=== PATIENT | female | born 1940 | race Caucasian/White ===

== ENCOUNTER → 2022-11-12 10:42 | Outpatient (BNVA) | payer MEDICARE, SELFPAY | PROVIDERS: PCP Pediatrics; Visit Provider Nurse Practitioner Family | DX: G20 Parkinson's disease (principal); R26.9 Unspecified abnormalities of gait and mobility | CPT/HCPCS: 99212 ==

== ENCOUNTER 2023-03-16 10:43 | Outpatient (AMB) | payer MEDICARE, SELFPAY ==
--- NOTE | 2023-03-16 11:13 | MHC.OFFVIS ---
Intake Vital Signs 03/16/23 11:17 Weight 114 lb 4 oz BP 138/68 Blood Pressure Location Lt brachial Position Sitting Pulse 87 Pulse Source Pulse Oximeter Pulse Oximetry (%) 97 Oxygen Delivery Method Room Air Intake Visit Reasons: 4MONTH FOLLOW UP Intake Note: F/U Parkinsons, states is doing exercise Pumper Head Required: No Allergies No Known Allergies Allergy (Verified 03/16/23 11:14) Medication List - Last Reconciled 03/16/23 by CARLIE Al carbidopa-levodopa 25-100 mg ER 1 tab PO QID 30 days ibuprofen 400 mg PO Q8H lisinopril 20 mg PO BID tolterodine ER 4 mg PO DAILY HPI HPI Comments History of Present Illness Details 82-yr-old female presents for f/u visit. Pt denies any significant interval medical history changes. Pt's current PD medication regimen: Pt decreased CD-LD ER 25-100mg- from 1 tab qid to 1 tab tid. Pt's primary concerns are: She wonders if there are local PD support groups ADL's: Ind but slow Swallowing: No issues w/ food. Has to be careful with fluids. Cough: No issues Drooling: Can have drooling, bothersome when walking with more exertion, say up a hill and needing to mouth breathe Orthostatic lightheadedness: Some Constipation: No issues Freezing: Denies Stiffness: Some Tremor: Mild LLE tremor at times Falls/Gait: Has fallen- tripped over a rock on her morning walk. Hallucinations: None Memory: Good. Rarely may forget a name Sleep: Sleeping well. Exercise: Taking the morning walk. Doing the PD exercise class. She wonders about using a treadmill or a stationary bike (has just found one but seat is too high). [facility] Family History (Updated 11/12/22 @ 10:53 by Abi Hernandez CMA) Mother COPD (chronic obstructive pulmonary disease) Father Emphysema of lung Social History (Updated 11/12/22 @ 10:52 by Abi Hernandez CMA) Alcohol intake: never Patient Tobacco Use Status: Never used Tobacco Review of Systems Const All systems reviewed & are unremarkable except as noted in HPI and below Physical Exam Vital Signs: Last Vital Signs Pulse 87 03/16/23 11:17 BP 138/68 03/16/23 11:17 Pulse Ox 97 03/16/23 11:17 Oxygen Delivery Method Room Air 03/16/23 11:17 Const General: cooperative and no acute distress Resp Effort & Inspection: normal respiratory effort and able to speak in complete sentences Neuro Other: Expression: Decreased expression Voice: Soft voice Tremor: None Tone: BUE Dyskinesia: None FFM: Mild bradykinesia Foot taps: Mild bradykinesia Gait: Stands ok, decreased arm swing, short steps w/ low floor clearance, steady gait Psych: Pleasant effect General: patient oriented x3 Assessment & Plan Assessment & Plan (1) Parkinson's disease: Code(s): G20 - Parkinson's disease (2) Gait difficulty: Code(s): R26.9 - Unspecified abnormalities of gait and mobility Plan May continue CD-LD Er [id number] 1 tab tid-qid. Try using a saline nasal spray prior to her walks to improve ability to breathe in through her nose and minimize drooling w/ walking. Info given on local PD support and exercise groups- pt may also benefit from checking the APDA website. Continue daily walks. Pt may try the stationary bike once seat is adjusted. She may use a treadmill, but w/ caution- ie holding onto railing and using safety/pull attachment. Coding Level of Care Code Est Pt Level 4 (96247) Diagnoses Parkinson's disease G20 Gait difficulty R26.9
[2023-03-16 11:17] VITALS: BP 138/68; PULSE 87; O2SAT 97
== END 2023-03-16 12:19 | disposition home or self-care (01) ==
PROVIDERS: Visit Provider Nurse Practitioner Family
DX: G20 Parkinson's disease (principal); R26.9 Unspecified abnormalities of gait and mobility
CPT/HCPCS: 99214

== ENCOUNTER → 2023-03-16 10:43 | Outpatient (BNVA) | payer MEDICARE, SELFPAY | PROVIDERS: Visit Provider Nurse Practitioner Family | DX: G20 Parkinson's disease (principal); R26.9 Unspecified abnormalities of gait and mobility | CPT/HCPCS: 99212 ==

== ENCOUNTER 2023-06-16 09:55 | Outpatient (AMB) | payer MEDICARE, SELFPAY ==
[2023-06-16 10:18] VITALS: BP 110/82; PULSE 95; O2SAT 98; BMI 19.9
--- NOTE | 2023-06-16 10:18 | MHC.OFFVIS ---
Intake Vital Signs 06/16/23 10:18 Height 5 ft 3 in Weight 112 lb 6 oz BMI 19.9 BP 110/82 Blood Pressure Location Rt brachial Position Sitting Pulse 95 Pulse Source Pulse Oximeter Pulse Oximetry (%) 98 Oxygen Delivery Method Room Air Intake Visit Reasons: f/u new symptoms / Confirmed Intake Note: Patient presents for new symptoms. I've got issues to address with her,I dont know where I'm at in the parkinsons scale. . Allergies No Known Allergies Allergy (Verified 06/16/23 10:20) Medication List - Last Reconciled 06/16/23 by CARLIE Al carbidopa-levodopa 25-100 mg ER 1 tab orally 5 x's per day; 30 days ibuprofen 400 mg PO Q8H lisinopril 20 mg PO BID tolterodine ER 4 mg PO DAILY HPI HPI Comments History of Present Illness Details 82-yr-old female presents for f/u visit. Pt denies any significant interval medical history changes. Pt reports that her Parkinson's dz is progressing. She is now noticing her CD-LD wearing off. Pt's current PD medication regimen: CD-LD ER 25-100mg 1 tab qid. Do medication effects last between doses: Wearing off in am. Last dose of pily t 7 pm, goes to bed at 11pm, 1st am dose at 7am- takes a walk but CD-LD takes an hr to kick in. ADL's: Ind but slow Swallowing: No issues w/ food. Has to be careful with fluids or crumbly foods. Drooling: Having more drooling, it is bothersome- trying to remind herself to keep swallowing. Orthostatic lightheadedness: Feeling : She is having bothersome urinary urgency, frequency, and nocturia- has to plan her day regarding bathroom access. She read that Botox can be helpful for OAB in PD- she would like to try Botox. Constipation: No issues Freezing: Denies Stiffness: Some Tremor: Tremor is worse in the am- when doing tasks, for instance cannot brush her teeth in the am. Can have an internal tremor. Falls/Gait: No falls Hallucinations: None Memory: Good. Rarely may forget a name Sleep: Sleeping well overall. She is trying to limit fluids in the evening. Exercise: Taking the morning walk. Not doing the PD exercise class in-person- the drive was to far. She is doing an online Power for Parkinson's. She is doing a stationary bike for about 15 min a day. 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 PFSH Family History Mother COPD (chronic obstructive pulmonary disease) Father Emphysema of lung Social History Alcohol intake: never Patient Tobacco Use Status: Never used Tobacco Review of Systems Const All systems reviewed & are unremarkable except as noted in HPI and below Physical Exam Vital Signs: Last Vital Signs Pulse 95 06/16/23 10:18 BP 110/82 06/16/23 10:18 Pulse Ox 98 06/16/23 10:18 Oxygen Delivery Method Room Air 06/16/23 10:18 BMI result Body Mass Index 19.9 Const General: cooperative and no acute distress Resp Effort & Inspection: normal respiratory effort and able to speak in complete sentences Neuro Other: General: patient oriented x3 Expression: Decreased expression Voice: Soft voice Tremor: BUE postural tremor- mild Tone: BUE mild Dyskinesia: None FFM: Mild bradykinesia Foot taps: Mild bradykinesia Gait: Stands slower today- uses arms to push-up, decreased arm swing, bent knees, shorter steps w/ lower floor clearance, steady gait Psych: Pleasant effect Assessment & Plan Assessment & Plan (1) Parkinson's disease with dyskinesia: Code(s): G20.B1 - Parkinson's disease with dyskinesia, without mention of fluctuations (2) Urinary frequency: Code(s): R35.0 - Frequency of micturition (3) Urinary urgency: Code(s): R39.15 - Urgency of urination (4) Gait difficulty: Code(s): R26.9 - Unspecified abnormalities of gait and mobility Plan Increase CD-LD Er 25-100mg from 1 tab qid to 1 tab % x's per day (7am, 11am, 3pm, 7pm, 11pm). If still off in the am, consider increasing 7am dose to 2 tabs or adding CD-LD IR 25-100mg 1/2-1 tab w/ 7am ER dose. Will refer pt for urology consult- explained that urology will need to evaluate her in order to consider her for Botox. Continue daily walks, stationary bike, and online PD exercise classes. She may use a treadmill, but w/ caution- ie holding onto railing and using safety/pull attachment. f/u in 3 months or sooner prn. Orders: Referrals Urology Referral G20.B1 - Parkinson's disease with dyskinesia, without mention of fluctuations, R35.0 - Frequency of micturition, R39.15 - Urgency of urination Medications: Changed From carbidopa-levodopa 25-100 mg ER 1 tab PO QID 30 days 120 tabs 6RF To carbidopa-levodopa 25-100 mg ER 1 tab orally 5 x's per day; 30 days 150 tabs 6RF Coding Level of Care Code Est Pt Level 4 (51435) Diagnoses Parkinson's disease with dyskinesia G20.B1 Urinary frequency R35.0 Urinary urgency R39.15 Gait difficulty R26.9
== END 2023-06-16 11:12 | disposition home or self-care (01) ==
PROVIDERS: PCP Pediatrics; Visit Provider Nurse Practitioner Family
DX: G20.B1 Parkinson's disease with dyskinesia, without mention of fluctuations (principal); R35.0 Frequency of micturition; R39.15 Urgency of urination; R26.9 Unspecified abnormalities of gait and mobility
CPT/HCPCS: 99214

== ENCOUNTER → 2023-06-16 09:55 | Outpatient (BNVA) | payer MEDICARE, SELFPAY | PROVIDERS: PCP Pediatrics; Visit Provider Nurse Practitioner Family | DX: G20.B1 Parkinson's disease with dyskinesia, without mention of fluctuations (principal); R35.0 Frequency of micturition; R39.15 Urgency of urination; R26.9 Unspecified abnormalities of gait and mobility | CPT/HCPCS: 99212 ==

== ENCOUNTER 2023-07-06 12:42 | Outpatient (AMB) | payer MEDICARE, SELFPAY ==
--- NOTE | 2023-07-06 13:05 | MHC.OFFVIS ---
Intake Intake Visit Reasons: OAB Intake Note: New Patient presents for initial visit for OAB Urology Medications: tolterodine Blood Thinner: none PVR: 19ml's Pain Management Nurse Practitioner Required: No Accompanied by: Self / Same As Patient Allergies No Known Allergies Allergy (Verified 07/06/23 13:45) Medication List - Last Reconciled 07/06/23 by Shellie Johnson, [employer]- carbidopa-levodopa 25-100 mg ER 1 tab orally 5 x's per day; 30 days ibuprofen 400 mg PO Q8H lisinopril 20 mg PO BID tolterodine ER 4 mg PO DAILY HPI HPI Comments History of Present Illness Details Saira Orellana is a very pleasant 82-year-old female patient of Dr. Regan. She has a past medical history of Parkinson's and overactive bladder. She presents to the office today as a new patient for her overactive bladder. In discussion with the patient today she reports feeling her urinary symptoms have been present for many years however feels they are worsening. She brings with her today a bladder diary that she has kept for the last week. It appears she is urinating 6 to 8 times per 24 hour period throughout the day with no episodes of nocturia. She is sleeping from approximately 22:00 to 06:00 with no urinary issues or episodes of nocturia. She reports having been on tolterodine for over a year and does feel this is helpful for her overactive bladder. Discussed at length normal toileting habits of approximately 5-7 times per day and no more than 1-2 times per night when adequately hydrating. She discusses her upcoming trip to [facility] with her son and was enquiring bladder Botox injections. Discussed at length treatment options for overactive bladder with pelvic floor therapy, overactive bladder medications, urodynamics and or in office cystoscopy for further assessment evaluation as well as bladder Botox and or InterStim placement. These treatment options were discussed at length. Risks and benefits of these treatment options were also discussed. All questions were answered In office urinalysis results reviewed with the patient today. PVR 19 mL. Discussed at length bladder triggers/irritants. She reports to be following up with Neurology here at [place] for her Parkinsons disease. She otherwise denies nocturia, hematuria, dysuria, foul smelling urine, changes to urinary stream, flank pain, fever, and or chills. PFSH Family History Mother COPD (chronic obstructive pulmonary disease) Father Emphysema of lung Social History Alcohol intake: never Patient Tobacco Use Status: Never used Tobacco Review of Systems Const Reports as per HPI Eyes Reports no additional complaints ENT Reports no additional complaints Card Reports no additional complaints Resp Reports no additional complaints GI Reports no additional complaints Reports as per HPI Musc Reports as per HPI Neuro Reports as per HPI Psych Reports no additional complaints Endo Reports no additional complaints Physical Exam Const General: cooperative, healthy appearing, comfortable, no acute distress, well developed, alert and awake Nutritional Appearance: thin Orientation/consciousness: patient oriented x3 Limitations: no limitations HEENT Head: Yes normal to inspection, Yes normocephalic and Yes atraumatic Ears: hearing grossly normal bilaterally Eyes General: appearance normal, both eyes and all related structures Neck Neck: Yes normal visual inspection and Yes trachea midline Chest Chest palpation & inspection: normal inspection of the chest Resp Effort & Inspection: normal respiratory effort and able to speak in complete sentences Cardio Rate: regular rate GI Inspection: Yes normal to inspection General: Yes no CVA tenderness Back/Spine/Pelvis Back: no CVA tenderness Skin General skin exam: no rashes or lesions noted Neuro General: patient oriented x3 Extrem General: Yes normal to inspection Psych Appearance: grossly normal and well kempt Mental Status: mental status grossly normal Speech and movement: Normal speech and movement present and Clear speech present Affect: normal affect Attitude: cooperative Thought process: Normal thought process present Thought content: Normal thought content present Insight: Fair insight present (Psych) Judgement: Fair judgement present (Psych) Office Procedures Post Void Residual Post Residual Void Post Void Residual (PVR): 19 70465-[id number] Void Residual by ultrasound Results AMB Urinalysis, Automated UA Leukoctes 15 Tabby/uL Last Edit by Malvin Adrian on 07/06/23 13:28 UA Nitrite Negative Last Edit by Malvin Adrian on 07/06/23 13:28 UA Urobilinogen 0.2 mg/dL Last Edit by Malvin Adrian on 07/06/23 13:28 UA Protein 0 mg/dL Last Edit by Malvin Adrian on 07/06/23 13:28 UA pH 6.5 Last Edit by Malvin Coronaclara on 07/06/23 13:28 UA Blood 0 Tarun/uL Last Edit by Malvin Coronaclara on 07/06/23 13:28 UA Specific [place] 1.015 Last Edit by Eliasdudleyflorina Coronaclara on 07/06/23 13:28 UA Ketone Negative Last Edit by Eliaslorriane Chloeclara on 07/06/23 13:28 UA Bilirubin 0 mg/dL Last Edit by Eliaslorraine Chloeclara on 07/06/23 13:28 UA Glucose 0 mg/dL Last Edit by Mario Albertoflorina Chloeclara on 07/06/23 13:28 Results Reviewed Results Reviewed: Laboratory Last Values Urine pH (Auto) 6.5 07/06/23 13:11 Specific [place] (Auto) 1.015 07/06/23 13:11 Urine Protein (Auto) 0 mg/dL 07/06/23 13:11 Glucose (UA)(Auto) 0 mg/dL 07/06/23 13:11 Urine Ketones (Auto) Negative 07/06/23 13:11 Urine Blood (Auto) 0 Tarun/uL 07/06/23 13:11 Urine Nitrite (Auto) Negative 07/06/23 13:11 Urine Bilirubin (Auto) 0 mg/dL 07/06/23 13:11 Urine Urobilinogen (Auto) 0.2 mg/dL 07/06/23 13:11 Leukocyte Esterase (Auto) 15 Tabby/uL 07/06/23 13:11 Assessment & Plan Assessment & Plan (1) Urinary urgency: Code(s): R39.15 - Urgency of urination (2) Urinary frequency: Code(s): R35.0 - Frequency of micturition Plan In office urinalysis results reviewed with the patient today; as noted above. PVR 19 mL. Discussed at length bladder diary results Discussed affects of Parkinson's on the bladder Stop tolterodine Start Myrbetriq 25 mg as discussed and prescribed. Will obtain retroperitoneal ultrasound for further assessment evaluation. Discussed at length treatment options for lower urinary tract symptoms patient is reporting although also discussed regular toilet habits Discussed bladder triggers/irritants. Follow-up in 1 month with imaging to be completed prior and PVR at next office visit; or sooner with any issues, concerns, and or questions. Orders: Orders AMB Urinalysis Automated Today Z13.9 - Encounter for screening, unspecified AMB Post Void Residual by ultrasound Today R39.15 - Urgency of urination US retroperitoneal comp Today R35.0 - Frequency of micturition, R39.15 - Urgency of urination Medications: New mirabegron ER (Myrbetriq) 25 mg PO DAILY 30 tabs 1RF 30 days N30.10 - Interstitial cystitis (chronic) without hematuria, N32.81 - Overactive bladder, R35.1 - Nocturia, R39.15 - Urgency of urination Discontinued tolterodine ER Discontinued Reason: Change Referral Type 4 mg PO DAILY Patient Instructions: The patient had an opportunity to ask questions regarding the treatment plan. All questions were answered. Physical exam, labs, and imaging were discussed and reviewed in detail. As well as risks, benefits, and discussion of treatment choices. No major barriers to understanding were identified. The patient expressed understanding and agreement with the above treatment plan. The patient was made aware they should contact our office by phone for worsening of their current condition, the appearance of new symptoms, or with any questions or concerns. Compliance is encouraged with any medications and follow up testing that is ordered. It is a privilege to be allowed the opportunity to participate in? your urological care.? Again, if you have any questions or concerns If you have any questions or concerns please do not hesitate to contact me. The office is [phone]. This note is constructed using voice recognition software. While every effort has been made to ensure accuracy accountant assistant errors may have been included. Yours sincerely, MOSES Hernandez Coding Level of Care Code New Pt Level 4 (52173) Diagnoses Urinary urgency R39.15 Urinary frequency R35.0 CPT Codes Post Residual Void - PVR CPT Code: 50742-Rguj Void Residual by ultrasound ([id number])
== END 2023-07-06 14:06 | disposition home or self-care (01) ==
PROVIDERS: PCP Pediatrics; Visit Provider Nurse Practitioner Family
DX: R39.15 Urgency of urination (principal); R35.0 Frequency of micturition
CPT/HCPCS: 99204

== ENCOUNTER → 2023-07-06 12:42 | Outpatient (BNVA) | payer MEDICARE, SELFPAY | PROVIDERS: PCP Pediatrics; Visit Provider Nurse Practitioner Family | DX: R39.15 Urgency of urination (principal); R35.0 Frequency of micturition | CPT/HCPCS: 51798; 81003; 99202 ==

== ENCOUNTER 2023-07-14 14:15 | Outpatient (REF) | payer MEDICARE, SELFPAY ==
--- NOTE | ~2023-07-14 | US_ITS ---
EXAMINATION: US RETROPERITONEAL COMPLETE (RENAL) CLINICAL INFORMATION: Urgency of urination. COMPARISON: None available. TECHNIQUE: Real-time imaging of the kidneys and bladder. FINDINGS: RIGHT KIDNEY: 9.0 x 3.3 x 5.2 cm (SAG x AP x TRV). The kidney is normal in size, contour, and echogenicity. Renal cortical thickness is normal. No calculi or focal parenchymal lesions. No hydronephrosis. LEFT KIDNEY: 10.3 x 4.6 x 4.4 cm (SAG x AP x TRV). The kidney is normal in size, contour, and echogenicity. Renal cortical thickness is normal. No calculi or focal parenchymal lesions. No hydronephrosis. BLADDER: Well distended and normal. Bilateral ureteral jets are demonstrated. Prevoid bladder volume is 275.9 mL. Postvoid bladder volume is 15.8 mL. ADDITIONAL FINDINGS: Eccentric thickening of the gallbladder wall is incidentally noted. This has internal vascularity and is suspicious for gallbladder mass measuring 2.1 x 1.8 x 2.1 cm. There is a large heterogeneous collection in the liver measuring 8.6 cm which on cine images has mobile tissues suggesting complex cyst or abscess although necrotic tumor could have a similar appearance. This is not adequately evaluated by ultrasound. US/US retroperitoneal comp IMPRESSION: Unremarkable kidneys and bladder. Abnormal findings in the liver and gallbladder as above suspicious for gallbladder malignancy and possible liver abscess versus necrotic tumor. These are not adequately evaluated by ultrasound. Further evaluation with MRI of the abdomen without and with intravenous contrast using liver mass protocol is recommended.
== END 2023-07-14 14:16 | disposition home or self-care (01) ==
LOC: HO.US 14:15
PROVIDERS: PCP Pediatrics; Visit Provider Nurse Practitioner Family
DX: R39.15 Urgency of urination (principal); R35.0 Frequency of micturition
CPT/HCPCS: 76770

== ENCOUNTER 2023-07-29 14:27 | Outpatient (AMB) | payer MEDICARE, SELFPAY ==
--- NOTE | 2023-07-29 14:28 | MHC.OFFVIS ---
Intake Intake Visit Reasons: 4-6 week follow up / US(set) Intake Note: Patient presents for follow up OAB, ultrasound results (imaging 07/14/23) Urology Medications: myrbetriq Blood Thinner: none PVR: 0ml's Heating Equipment Repairer Required: No Accompanied by: Self / Same As Patient Allergies No Known Allergies Allergy (Verified 07/29/23 15:51) Medication List - Last Reconciled 07/29/23 by CARLIE Hernandez-SULY carbidopa-levodopa 25-100 mg ER 1 tab orally 5 x's per day; 30 days ibuprofen 400 mg PO Q8H lisinopril 20 mg PO BID tadalafil (Cialis) 5 mg PO DAILY 30 days tolterodine ER 4 mg PO DAILY 90 days HPI HPI Comments History of Present Illness Details Saira Orellana is a very pleasant 82-year-old female patient of Dr. Regan. She has a past medical history of Parkinson's and overactive bladder. She presents to the office today for follow-up. Of note, patient was seen approximately 3 weeks ago as a new patient for overactive bladder at which time retroperitoneal ultrasound was ordered for further assessment evaluation in the patient's tolterodine was discontinued and she was trialed on 25 mg of Myrbetriq daily. Recent retroperitoneal ultrasound results reviewed with the patient today. Bilateral kidneys with no calculi, lesions, and or hydronephrosis. The bladder is well distended and normal. Bilateral ureteral jets are demonstrated. Pre void bladder volume is approximately 280 mL. Postvoid bladder volume is approximately 15 mL. There was suspicion for gallbladder mass measuring 2.1 x 1.8 x 2.1 cm with a large heterogeneous collection in the liver measuring 8.6 cm which suggest complex cyst or abscess although necrotic tumor could have similar appearance. In discussion with the patient today she reports feeling tolterodine was more effective in treating her overactive bladder. Discussed trial of Gemtesa however patient reports given her upcoming trip with her son to [facility] she would like to go back on tolterodine as she knows this was more helpful. Discussed obtaining MRI for further assessment evaluation of abnormal findings on recent retroperitoneal ultrasound. Discussed at length normal toileting habits of approximately 5-7 times per day and no more than 1-2 times per night when adequately hydrating. Discussed at length treatment options for overactive bladder with pelvic floor therapy, overactive bladder medications, urodynamics and or in office cystoscopy for further assessment evaluation as well as bladder Botox and or InterStim placement. These treatment options were discussed at length. Risks and benefits of these treatment options were also discussed. All questions were answered In office urinalysis results reviewed with the patient today. PVR 0 mL. Discussed at length bladder triggers/irritants. She reports to be following up with Neurology here at [facility] for her Parkinsons disease. She otherwise denies nocturia, hematuria, dysuria, foul smelling urine, changes to urinary stream, flank pain, fever, and or chills. PFSH Family History Mother COPD (chronic obstructive pulmonary disease) Father Emphysema of lung Social History Alcohol intake: never Patient Tobacco Use Status: Never used Tobacco Review of Systems Const Reports as per HPI Eyes Reports no additional complaints ENT Reports no additional complaints Card Reports no additional complaints Resp Reports no additional complaints GI Reports no additional complaints Reports as per HPI Musc Reports as per HPI Neuro Reports as per HPI Psych Reports no additional complaints Endo Reports no additional complaints Physical Exam Const General: cooperative, healthy appearing, comfortable, no acute distress, well developed, alert and awake Nutritional Appearance: thin Orientation/consciousness: patient oriented x3 Limitations: no limitations HEENT Head: Yes normal to inspection, Yes normocephalic and Yes atraumatic Ears: hearing grossly normal bilaterally Eyes General: appearance normal, both eyes and all related structures Neck Neck: Yes normal visual inspection and Yes trachea midline Chest Chest palpation & inspection: normal inspection of the chest Resp Effort & Inspection: normal respiratory effort and able to speak in complete sentences Cardio Rate: regular rate GI Inspection: Yes normal to inspection General: Yes no CVA tenderness Back/Spine/Pelvis Back: no CVA tenderness Skin General skin exam: no rashes or lesions noted Neuro General: patient oriented x3 Extrem General: Yes normal to inspection Psych Appearance: grossly normal and well kempt Mental Status: mental status grossly normal Speech and movement: Normal speech and movement present and Clear speech present Affect: normal affect Attitude: cooperative Thought process: Normal thought process present Thought content: Normal thought content present Insight: Fair insight present (Psych) Judgement: Fair judgement present (Psych) Office Procedures Post Void Residual Post Residual Void Post Void Residual (PVR): 0 [id number] Void Residual by ultrasound Results AMB Urinalysis, Automated UA Leukoctes 0 Tabby/uL Last Edit by Malvin Adrian on 07/29/23 15:02 UA Nitrite Negative Last Edit by Malvin Adrian on 07/29/23 15:02 UA Urobilinogen 0.2 mg/dL Last Edit by Malvin Adrian on 07/29/23 15:02 UA Protein 15 mg/dL Last Edit by Malvin Adrian on 07/29/23 15:02 UA pH 5.5 Last Edit by Livescribelorraine Adrian on 07/29/23 15:02 UA Blood 0 Tarun/uL Last Edit by Malvin Adrian on 07/29/23 15:02 UA Specific Rhine 1.030 Last Edit by Malvin Adrian on 07/29/23 15:02 UA Ketone Negative Last Edit by Livescribelorraine Adrian on 07/29/23 15:02 UA Bilirubin 0 mg/dL Last Edit by Livescribelorraine Adrian on 07/29/23 15:02 UA Glucose 0 mg/dL Last Edit by Livescribelorraine Adrian on 07/29/23 15:02 Results Reviewed Results Reviewed: Laboratory Last Values Urine pH (Auto) 5.5 07/29/23 14:34 Specific Rhine (Auto) 1.030 07/29/23 14:34 Urine Protein (Auto) 15 mg/dL 07/29/23 14:34 Glucose (UA)(Auto) 0 mg/dL 07/29/23 14:34 Urine Ketones (Auto) Negative 07/29/23 14:34 Urine Blood (Auto) 0 Tarun/uL 07/29/23 14:34 Urine Nitrite (Auto) Negative 07/29/23 14:34 Urine Bilirubin (Auto) 0 mg/dL 07/29/23 14:34 Urine Urobilinogen (Auto) 0.2 mg/dL 07/29/23 14:34 Leukocyte Esterase (Auto) 0 Tabby/uL 07/29/23 14:34 Date of Service: 07/14/23 EXAMINATION: US RETROPERITONEAL COMPLETE (RENAL) FINDINGS: RIGHT KIDNEY: 9.0 x 3.3 x 5.2 cm (SAG x AP x TRV). The kidney is normal in size, contour, and echogenicity. Renal cortical thickness is normal. No calculi or focal parenchymal lesions. No hydronephrosis. LEFT KIDNEY: 10.3 x 4.6 x 4.4 cm (SAG x AP x TRV). The kidney is normal in size, contour, and echogenicity. Renal cortical thickness is normal. No calculi or focal parenchymal lesions. No hydronephrosis. BLADDER: Well distended and normal. Bilateral ureteral jets are demonstrated. Prevoid bladder volume is 275.9 mL. Postvoid bladder volume is 15.8 mL. ADDITIONAL FINDINGS: Eccentric thickening of the gallbladder wall is incidentally noted. This has internal vascularity and is suspicious for gallbladder mass measuring 2.1 x 1.8 x 2.1 cm. There is a large heterogeneous collection in the liver measuring 8.6 cm which on cine images has mobile tissues suggesting complex cyst or abscess although necrotic tumor could have a similar appearance. This is not adequately evaluated by ultrasound. IMPRESSION: Unremarkable kidneys and bladder. Abnormal findings in the liver and gallbladder as above suspicious for gallbladder malignancy and possible liver abscess versus necrotic tumor. These are not adequately evaluated by ultrasound. Further evaluation with MRI of the abdomen without and with intravenous contrast using liver mass protocol is recommended. 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 PVR 0mL. Discussed affects of Parkinson's on the bladder. Restart tolterodine 4 mg daily as patient reports this to be more helpful than Myrbetriq 25 mg daily Start Cialis 5 mg daily for attempting bladder stability Stop Myrbetriq 25 mg as discussed and prescribed. Recent retroperitoneal ultrasound results reviewed with the patient today Will obtain MRI of the abdomen for further assessment evaluation; will await results and if abnormal will need follow-up with Dr. Bush. Discussed at length treatment options for lower urinary tract symptoms patient is reporting although also discussed regular toilet habits. Discussed bladder triggers/irritants. Follow-up in September with imaging to be completed prior once patient is back from vacation ([facility]) or sooner with any issues, concerns, and or questions. Orders: Orders MR abdomen wo/w con Today C23 - Malignant neoplasm of gallbladder, K75.0 - Abscess of liver AMB Urinalysis Automated Today Z13.9 - Encounter for screening, unspecified AMB Post Void Residual by ultrasound Today R35.0 - Frequency of micturition Medications: New tolterodine ER 4 mg PO DAILY 90 days 90 caps 1RF N31.8 - Other neuromuscular dysfunction of bladder, N40.0 - Benign prostatic hyperplasia without lower urinary tract symptoms tadalafil (Cialis) [id number] [facility] [id number] Member [id number] 5 mg PO DAILY 30 days 30 tabs 2RF Discontinued mirabegron ER (Myrbetriq) Discontinued Reason: Doctor's Order 25 mg PO DAILY 30 days 30 tabs 1RF N30.10 - Interstitial cystitis (chronic) without hematuria, N32.81 - Overactive bladder, R35.1 - Nocturia, R39.15 - Urgency of urination Patient Instructions: The patient had an opportunity to ask questions regarding the treatment plan. All questions were answered. Physical exam, labs, and imaging were discussed and reviewed in detail. As well as risks, benefits, and discussion of treatment choices. No major barriers to understanding were identified. The patient expressed understanding and agreement with the above treatment plan. The patient was made aware they should contact our office by phone for worsening of their current condition, the appearance of new symptoms, or with any questions or concerns. Compliance is encouraged with any medications and follow up testing that is ordered. It is a privilege to be allowed the opportunity to participate in? your urological care.? Again, if you have any questions or concerns If you have any questions or concerns please do not hesitate to contact me. The office is [phone]. This note is constructed using voice recognition software. While every effort has been made to ensure accuracy accounting teacher errors may have been included. Yours sincerely, CARLIE Hernnadez-SULY Coding Level of Care Code Est Pt Level 4 (57703) Diagnoses Liver abscess K75.0 Gallbladder malignant neoplasm C23 Urinary urgency R39.15 Urinary frequency R35.0 CPT Codes Post Residual Void - PVR CPT Code: 27412-[id number] Void Residual by ultrasound ([id number])
== END 2023-07-29 15:16 | disposition home or self-care (01) ==
PROVIDERS: PCP Pediatrics; Visit Provider Nurse Practitioner Family
DX: K75.0 Abscess of liver (principal); C23 Malignant neoplasm of gallbladder; R39.15 Urgency of urination; R35.0 Frequency of micturition
CPT/HCPCS: 99214

== ENCOUNTER → 2023-07-29 14:27 | Outpatient (BNVA) | payer MEDICARE, SELFPAY | PROVIDERS: PCP Pediatrics; Visit Provider Nurse Practitioner Family | DX: R39.15 Urgency of urination (principal); R35.0 Frequency of micturition; C23 Malignant neoplasm of gallbladder; K75.0 Abscess of liver | CPT/HCPCS: 51798; 81003; 99212 ==

== ENCOUNTER 2023-10-04 10:20 | Outpatient (AMB) | payer MEDICARE, SELFPAY ==
--- NOTE | 2023-10-04 10:23 | MHC.OFFVIS ---
Intake Vital Signs 10/04/23 10:24 Respiration 16 Pulse 79 Pulse Source Pulse Oximeter Pulse Oximetry (%) 99 Oxygen Delivery Method Room Air Intake Visit Reasons: Follow up/New Symptoms - Confirmed Intake Note: Pt presents for follow up for gait instability. 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 Pt reports the following interval medical history changes: She did see urology. During the work-up, ultrasound showed gallbladder mass 2.1 x 1.8 x 2.1 cm and a large liver lesion measuring 8.6 cm. She denies abd pain, GI s/s. She is scheduled for f/u abd MRI 10/07 at [facility]- was ordered by PCP. Pt's current PD medication regimen: CD-LD ER 25-100mg 1 tab tid- was having difficulty managing this w/ her meals. Do medication effects last between doses: Unsure. Last dose of days at 7 pm, goes to bed at 10-11pm, 1st am dose at 7am- takes a walk but CD-LD takes an hr to kick in. She wonders if she can try a MAO-B inhibitor. ADL's: Ind but slow Swallowing: No issues w/ food. Drinking w/ a straw. Has to be careful with cereal or crumbly foods. Drooling: Does have drooling. Orthostatic lightheadedness: Feeling : She continues to have urinary urgency, frequency, and nocturia. The other day she had urinary incontinence. Constipation: No issues Freezing: Denies Stiffness: Noticing stiffness. In her back. Her toes becomes stiff, painful, and numb when she is at rest. Difficulty rolling over in bed at night. Tremor: Has an internal tremor. Falls/Gait: No falls. In the am, she has to be careful with walking, needs to raise her feet higher, but walking in the duran. Hallucinations: None Memory: Good. Rarely may forget a name Sleep: Sleeping well overall. She is feeling fatigued. She does not think she snores. Exercise: Taking a morning walk. Doing an online [employer] for Parkinson's x's 40 minutes most days. Not using the stationary bike- it needs repairs. 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 PFSH Family History Mother COPD (chronic obstructive pulmonary disease) Father Emphysema of lung Social History Alcohol intake: never Patient Tobacco Use Status: Never used Tobacco Review of Systems Const All systems reviewed & are unremarkable except as noted in HPI and below Physical Exam Vital Signs: Last Vital Signs Pulse 79 10/04/23 10:24 Resp 16 10/04/23 10:24 Pulse Ox 99 10/04/23 10:24 Oxygen Delivery Method Room Air 10/04/23 10:24 BMI result Body Mass Index 19.8 Const General: cooperative and no acute distress Resp Effort & Inspection: normal respiratory effort and able to speak in complete sentences Neuro Other: General: patient oriented x3 Expression: Decreased expression Voice: Soft voice Tremor: No visible tremor today. Tone: BUE mild Dyskinesia: None FFM: Mild bradykinesia Foot taps: Mild bradykinesia Gait: Stands slowly, decreased arm swing, bent knees, short steps w/ lower floor clearance, steady gait Psych: Pleasant effect Assessment & Plan Assessment & Plan (1) Parkinson's disease with dyskinesia: Code(s): G20.B1 - Parkinson's disease with dyskinesia, without mention of fluctuations (2) Gait difficulty: Code(s): R26.9 - Unspecified abnormalities of gait and mobility (3) Sleep difficulties: Code(s): G47.9 - Sleep disorder, unspecified (4) Fatigue: Code(s): R53.83 - Other fatigue Plan Increase CD-LD Er 25-100mg from 1 tab tid to 1 tab QID (30 minutes AC and QHS). Trial Rasagiline 0.5mg qd x's 7 days then 1mg qd. Pt advsied full effect may take 6-8 weeks. Reviewed common s/e's. f/u w/ urology as scheduled. Abd MRI as scheduled- asked pt to have results cc'd to us. Offered to check labs and sleep study for underlying causes of fatigue- pt would like to hold for now. Continue daily walks and online PD exercise classes. She may use a treadmill. ? f/u in 4 months or sooner prn. Medications: New rasagiline 0.5mg qd x's 1 week, then 1 tab qd orally daily; 30 days 30 tabs 3RF Changed From carbidopa-levodopa 25-100 mg ER 1 tab orally 5 x's per day; 30 days 150 tabs 6RF To carbidopa-levodopa 25-100 mg ER 1 tab PO QID 90 days 360 tabs 1RF Coding Level of Care Code Est Pt Level 4 (02658) Diagnoses Parkinson's disease with dyskinesia G20.B1 Gait difficulty R26.9 Sleep difficulties G47.9 Fatigue R53.83
[2023-10-04 10:24] VITALS: PULSE 79; RESP 16; O2SAT 99
== END 2023-10-04 11:33 | disposition home or self-care (01) ==
PROVIDERS: PCP Pediatrics; Visit Provider Nurse Practitioner Family
DX: G20.B1 Parkinson's disease with dyskinesia, without mention of fluctuations (principal); R26.9 Unspecified abnormalities of gait and mobility; G47.9 Sleep disorder, unspecified; R53.83 Other fatigue
CPT/HCPCS: 99214

== ENCOUNTER → 2023-10-04 10:20 | Outpatient (BNVA) | payer MEDICARE, SELFPAY | PROVIDERS: PCP Pediatrics; Visit Provider Nurse Practitioner Family | DX: G20.B1 Parkinson's disease with dyskinesia, without mention of fluctuations (principal); R26.9 Unspecified abnormalities of gait and mobility; R53.83 Other fatigue; G47.9 Sleep disorder, unspecified | CPT/HCPCS: 99212 ==